=== PATIENT | female | born 2000 | race Caucasian/White ===

== ENCOUNTER 2020-04-21 03:56 | Emergency (ER) | payer MEDICAID, SELFPAY ==
[2020-04-21 04:01] VITALS: BP 110/79; PULSE 101; RESP 16; TEMP 36.7; O2SAT 98
--- NOTE | 2020-04-21 04:15 | US_ITS ---
EXAMINATION: US OBSTETRICAL FOLLOW UP CLINICAL INFORMATION: Decreased movement, 22 weeks. Known renal agenesis. COMPARISON: None TECHNIQUE: Real time transabdominal imaging with color and M-mode Doppler. POSITION: Cephalic PLACENTA: Anterior, grade 2 AMNIOTIC FLUID INDEX: 0 cm MEASUREMENTS: biometric measurements are as follows: Biparietal Diameter: 5.22 cm (21 weeks 6 days) Occipital Frontal Diameter: 6.75 cm (22 weeks 1 day) Head Circumference: 19.42 cm (21 weeks 5 days) Abdominal Circumference: 14.6 cm (20 weeks 0 days) Femur Length: 3.4 cm (20 weeks 5 days) ESTIMATED WEIGHT: The EFW is 354 grams +/- 52 grams (0 lbs 12 oz +/- 2 oz). This is at the less than 2 percentile. HR: 134 bpm Other findings: The kidneys and bladder are not seen. Atypical appearance of the visualized heart. There is a two-vessel cord visualized. Sluggish movements. Maternal cervical length of 3.6 cm. Left ovarian cyst measuring 3.4 x 1.8 x 2.7 cm. US/US OB follow up IMPRESSION: 1. Single intrauterine gestation in cephalic position with anterior placenta. 2. EFW: 354 g, which is less than the 2nd percentile 3. Abnormal NICKIE: 0 cm. 4. Sluggish movements. 2 vessel cord. Limited evaluation of the cardiac structures appear atypical.
--- NOTE | 2020-04-21 04:18 | ED.FEMALEGU ---
HPI - Female Genitourinary General Chief complaint: Anxiety Stated complaint: 22 WEEKS ,WANTS TO BE CHECKED OUT Time Seen by Provider: 04/21/20 04:15 Source: patient Mode of arrival: ambulatory Limitations: no limitations History of Present Illness HPI Narrative: Patient with increased anxiety 22 weeks with renal and heart agenesis was told at 13 weeks to get but patient continued to have . Today she was very anxious with emotions at home and did not feel her baby moving hence came to the ER. Patient denies any vaginal discharge no bleeding no watery discharge , patient has OBG in [place] Related Data Allergies Allergy/AdvReac Type Severity Reaction Status Date / Time No Known Allergies Allergy Unverified 01/06/20 16:50 Review of Systems Review of Systems: Yes all other systems are reviewed and are negative [facility] Past Medical History Medical History Hernia Surgical History History of appendectomy Social History Social History Alcohol intake: never Smoked in Last 30 Days: No Use of substances other than those prescribed or required for medical reasons: No Advance Directives: No Physical Exam Vital Signs: Vital Signs: Last Vital Signs Temp 98.1 F 04/21/20 05:44 Pulse 93 04/21/20 05:44 Resp 18 04/21/20 05:44 BP 93/58 L 04/21/20 05:44 Pulse Ox 98 04/21/20 05:44 Body Mass Index 30.0 Appearance: Alert. Oriented X3. No acute distress. Anxious Eyes: Pupils equal, round and reactive to light. ENT: Pharynx normal. Neck: Normal inspection. Neck supple. CVS: Normal heart rate and rhythm. Pulses normal. Respiratory: No respiratory distress. Breath sounds normal. Abdomen: Soft and nontender. Bowel sounds are present, no mass palpable, no CVA tenderness gravid uterus+ FHS 148 Skin: Skin warm and dry. Normal skin color. Normal skin turgor. Extremities: No lower extremity edema. Neuro: Oriented X 3. No motor deficit. No sensory deficit. MDM - Female Genitourinary MDM Narrative Medical decision making narrative: Patient aware of renal agenesis and IUGR, ultrasound showed heartbeats of 138 very minimal amniotic fluid and renal agenesis. Patient advised to follow with her ObG Discharge Plan Discharge Clinical Impression: Acute anxiety, affected by intrauterine growth retardation (IUGR) Patient Disposition: Home, Self-Care Instructions: Anxiety (ED), at 19 to 22 Weeks (ED) Additional Instructions: Follow-up with your OBG as you aware of congenital anomalies of your fetus Interventions: ED Discharge Assessment Last Done: 04/21/20 05:48
[2020-04-21 05:44] VITALS: BP 93/58; PULSE 93; RESP 18; TEMP 36.7; O2SAT 98
== END 2020-04-21 06:29 | disposition home or self-care (01) ==
PROVIDERS: Emergency Provider Internal Medicine
DX: O36.5920 Maternal care for other known or suspected poor fetal growth, second trimester, not applicable or unspecified (principal); O26.892 Other specified pregnancy related conditions, second trimester; F41.9 Anxiety disorder, unspecified; O35.8XX0 Maternal care for other (suspected) fetal abnormality and damage, not applicable or unspecified; Q60.0 Renal agenesis, unilateral; O41.02X0 Oligohydramnios, second trimester, not applicable or unspecified; Z3A.22 22 weeks gestation of pregnancy
CPT/HCPCS: 76816; 99284

== ENCOUNTER 2020-04-21 11:37 | Emergency (ER) | payer BC, MEDICAID, SELFPAY ==
[2020-04-21 11:44] VITALS: BP 119/86; PULSE 102; RESP 22; TEMP -17.7; TEMP 0; O2SAT 98
--- NOTE | 2020-04-21 12:00 | PC.NURSE ---
Upon pelvic exam Dr. Herrera reports closed cervix, no bleeding noted.
--- NOTE | 2020-04-21 12:02 | ED_ITS ---
HPI - General Adult General Chief complaint: General Medical Stated complaint: ?contractions Time Seen by Provider: 04/21/20 12:02 Source: patient Mode of arrival: ambulatory Limitations: no limitations History of Present Illness HPI narrative: Patient comes emergency room complaining of contractions. Patient states around 10:30, patient woke up in a puddle of fluid, thinks she broke her water, no blood. Patient states that since 10:30, she has been complaining of abdominal cramping, over the last hour the contractions have been very strong, intermittent every 5 minutes, lasting 2-3 minutes. Patient is [place] from [place] where she has had all her care. Patient states she is a G 4 P 0. 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 MD complaint: Contractions Related Data Allergies Allergy/AdvReac Type Severity Reaction Status Date / Time nickel Allergy Anaphylaxis Verified 04/21/20 11:53 ondansetron [From Zofran] Allergy Anaphylaxis Verified 04/21/20 11:52 promethazine [From Phenergan] Allergy Anaphylaxis Verified 04/21/20 11:54 Review of Systems Review of Systems: Constitutional : No Weight loss, No Fever, No Chills, No Night Sweats, No Fatigue, No Malaise ENT/Mouth : No Hearing loss, No Ear Pain, No Nasal Congestion, No Sinus Pain, No Hoarseness, No sore throat, No Rhinorrhea, No Swallowing Difficulty Eyes: No Eye Pain, No Swelling, No Redness, No Foreign Body, No Discharge, No Vision Changes Cardiovascular : No Chest Pain, No SOB, No Dyspnea on Exertion, No Orthopnea, No Edema, No Palpitations Respiratory : No Cough, No Sputum, No Wheezing, No Smoke Exposure, No Dyspnea Gastrointestinal : No Nausea, No Vomiting, No Diarrhea, No Constipation, No abdominal Pain, No Hematochezia, No Melena Genitourinary : Patient complaining feeling a gush of fluid at 10:30 in the morning, no vaginal bleeding, complaining of uterine contractions every 5 minutes, lasting 2-3 minutes Musculoskeletal : No joint pain, No Myalgias, No Joint Swelling Skin : No Skin Lesions, No rash Neuro : No Weakness, No Numbness, No Paresthesias, No Loss of Consciousness, No Dizziness, No Headache Psych : No Anxiety/Panic, No Depression, No SI/HI/AH/VH, No Social Issues, Heme/Lymph: No Bruising, No Bleeding,No Lymphadenopathy Endocrine : No Polyuria, No Polydipsia, No Temperature Intolerance ON LICENSE OF [facility] Past Medical History Medical History Hernia Surgical History History of appendectomy Social History Social History Alcohol intake: never Advance Directives: No Advance Directives Information Provided: No Physical Exam Vital Signs: Vital Signs: Last Vital Signs Temp 0 F L 04/21/20 11:44 Pulse 102 H 04/21/20 11:44 Resp 22 H 04/21/20 11:44 BP 119/86 04/21/20 11:44 Pulse Ox 98 04/21/20 11:44 Body Mass Index 30.0 Appearance: Alert. Oriented X3. Very anxious, seems very uncomfortable, screaming with contractions Eyes: Pupils equal, round and reactive to light. ENT: Pharynx normal. Neck: Normal inspection. Neck supple. No lymph nodes noted. No crepitus CVS: Normal heart rate and rhythm. Pulses normal. Normal S1 and S2 Respiratory: No respiratory distress. Breath sounds normal. No Wheezing. No rales Abdomen: Soft, nontender when patient has no contractions : Copious amount of whitish discharge, cervix is closed Skin: Skin warm and dry. Normal skin color. Normal skin turgor. Extremities: No lower extremity edema. No lower extremity edema. No Lacerations. No Rash Neuro: Oriented X 3. No motor deficit. No sensory deficit. Moving all extermities. No slurred speech. Course Course Course Narrative: I discussed the patient with [facility] OBGYN resident, patient is being accepted to by Dr. Estefanía Brian Labs are still pending, patient has had 2 L of normal saline. Seems that the contractions are slowing down Discharge Plan Discharge Clinical Impression: uterine contractions Patient Disposition: [facility]
--- NOTE | 2020-04-21 12:10 | PC.NURSE ---
2 L normal saline hung w/o per Dr. Herrera v/o. Pt reports contractions are lasting >1 min, approx. 3 minutes apart.
[2020-04-21 12:18] VITALS: BP 104/70; PULSE 95; RESP 22; O2SAT 99
[2020-04-21 12:24] LABS: COVID-19 Test Negative (Negative)
== END 2020-04-21 12:45 | disposition short-term general hospital (02) ==
PROVIDERS: Emergency Provider Emergency Medicine
DX: O60.02 Preterm labor without delivery, second trimester (principal); Z3A.22 22 weeks gestation of pregnancy
CPT/HCPCS: 87635; 99283; 99284

== ENCOUNTER 2021-07-31 14:25 | Emergency (ER) | payer MEDICAID, SELFPAY ==
--- NOTE | ~2021-07-31 | CT_ITS ---
EXAMINATION: CT ABDOMEN AND PELVIS WITHOUT CONTRAST CLINICAL INFORMATION: left flank pain, fever . COMPARISON: No pertinent prior studies are available for comparison. TECHNIQUE: Multidetector volumetric imaging was performed from the superior aspect of the liver through the pubic symphysis without contrast per renal stone protocol. Sagittal and coronal reformatted images were obtained on the technologist workstation. This CT examination was performed using dose optimization techniques as appropriate, variously including the following: *Automated exposure control *Adjustment of mA and/or kV according to patient size (this includes techniques or standardized protocols for targeted exams where dose is matched to indication/reason for exam; i.e. extremities or head) *Use of iterative reconstruction technique DLP: 552 mGy-cm. FINDINGS: LUNG BASES: The visualized lung bases are unremarkable. LIVER, GALLBLADDER, BILIARY TREE: The non-contrast liver is normal in size, shape, and attenuation. No focal hepatic lesion or biliary ductal dilatation is present. The gallbladder is unremarkable with no evidence of radiopaque gallstones, gallbladder wall thickening, or obvious pericholecystic inflammatory changes. PANCREAS: Unremarkable. SPLEEN: Unremarkable. ADRENAL GLANDS: Unremarkable. KIDNEYS AND URETERS: The kidneys are normal in size, shape, and attenuation. No hydronephrosis, hydroureter, or calculi seen. No perinephric stranding. BLADDER: Unremarkable. GASTROINTESTINAL TRACT: The small and large bowel are unremarkable. The partially visualized appendix is unremarkable. ABDOMINAL WALL: No significant hernia is appreciated. LYMPHOVASCULAR STRUCTURES: No lymphadenopathy. The aorta is unremarkable.. PELVIC VISCERA: Unremarkable. OSSEUS STRUCTURES: Unremarkable. CT/CT abdomen pelvis wo con IMPRESSION: No acute intra-abdominal process seen. No renal or ureteric calculi and no obstructive changes noted..
[2021-07-31 15:21] VITALS: BP 130/85; PULSE 87; RESP 18; TEMP 36.9; O2SAT 98; BMI 28.2
--- NOTE | 2021-07-31 15:27 | PC.NURSE ---
patient given zofran after patient states having no allergies and feeling nausea. RN then sees patient has listed allergy to zofran. patient asked specifically if she had an allergy to zofran after admin and reports no. patient instructed to make RN aware immediately if she has any reaction. placed in view of nurses station
[2021-07-31 15:47] LABS: Appearance Urine CLEAR; Color Urine YELLOW; Glucose Urine UA NEG (NEG); Leukocyte Esterase Urine TRACE (NEG); Nitrite Urine NEG (NEG); PH 6.5 (5.0-8.0); UACC Culture Trigger YES; Urine Blood NEG (NEG); Urine Ketones NEG (NEG); Urine Protein NEG (NEG-TRACE)
[2021-07-31 15:47] LABS: IDNOW Serial# 08D9AD1C; Strep A Nucleic Acid Negative (Negative)
[2021-07-31 15:49] LABS: UPreg QC Valid YES; Urine Pregnancy NEGATIVE (NEGATIVE)
[2021-07-31 15:53] LABS: COVID-19 Test Negative (Negative); IDNOW Serial# 16C4AD1C; Influenza A Negative (Negative); Influenza B2 Negative (Negative)
[2021-07-31 16:11] LABS: Bacteria Urine 1+ /LPF; Mucus Urine TRACE /LPF; Squamous Epithelial Cell Urine 2+ /LPF; UACC CULT YES
[2021-07-31] MEDS: Acetaminophen 325 MG TABLET 650 MG PO (16:18)
[2021-07-31 16:29] LABS: MANUAL DIFF FLAG NO
[2021-07-31 16:31] LABS: Basophils Percent Auto 0.2 % (0-2); Eosinophils Absolute Auto 0.1 X10*3/uL (0.0-0.4); Eosinophils Percent Auto 0.6 % (0-4); Hematocrit 39.9 % (37.0-47.0); Hemoglobin 13.1 g/dl (12.0-16.0); Imm Gran Abs Auto 0.02 X10*3/uL (0.00-0.03); Imm Gran Pct Auto 0.2 % (0.0-0.4); Lymphocytes Absolute Auto 2.2 X10*3/uL (1.2-4.9); Lymphocytes Percent Auto 22.6 % (20-40); Mean Corpuscular HGB Conc 32.8 g/dl (31.0-35.0); Mean Corpuscular Hemoglobin 28.5 pg (27.0-33.0); Mean Corpuscular Volume 86.7 fL (80.0-98.0); Mean Platelet Volume 9.8 fL (9.4-12.3); Monocytes Absolute Auto 0.5 X10*3/uL (0.1-1.2); Monocytes Percent Auto 4.7 % (2-11); Neutrophils Absolute Auto 6.8 x10*3/uL (2.0-8.3); Neutrophils Percent Auto 71.7 % (45-73); Platelet Count 265 X10*3/uL (160-400); Red Cell Distribution Width 12.3 % (11.0-16.0); White Blood Count 9.5 X10*3/uL (4.8-10.8)
--- NOTE | 2021-07-31 16:40 | ED_ITS ---
HPI - General Adult General Chief complaint: General Medical Stated complaint: fever/headaches Time Seen by Provider: 07/31/21 15:43 Source: patient Mode of arrival: ambulatory Limitations: no limitations History of Present Illness HPI narrative: 21-year-old female presents with 4 days of headache, dysuria, and polydipsia. Patient states she had a fever this morning at home. She has had hot and cold chills and increased urinary frequency. She is nauseous, and has left low back pain. Denies cough, sore throat, runny nose. Has chronic upper lip swelling for 1 year, has seen Dermatology, dentist, statistical assistant, no clear diagnosis. Patient does have a history of migraines. She is allergic to ketorolac. Patient states since she lost her baby last year, she has had multiple physical complaints. Related Data Previous Rx's Medication Instructions Recorded nitrofurantoin macrocrystal 100 mg 100 mg PO BID 5 Days #10 cap 07/31/21 capsule Allergies Allergy/AdvReac Type Severity Reaction Status Date / Time nickel Allergy Anaphylaxis Verified 07/31/21 18:01 ondansetron [From Zofran] Allergy Anaphylaxis Verified 07/31/21 18:01 promethazine [From Phenergan] Allergy Anaphylaxis Verified 07/31/21 18:01 metoclopramide [From Reglan] AdvReac Unknown Verified 07/31/21 18:01 Review of Systems Constitutional: Constitutional: Denies body ache(s), Reports chills, Reports fatigue, Reports fever(s), Reports headache(s), Denies malaise and Denies weakness Eyes: Eyes: Denies diplopia ENT: Reports Normal hearing present, Denies vertigo, Denies dizziness, Denies otalgia, Reports headache(s), Denies mouth pain, Denies post nasal drip, Denies sinus pain, Denies sinus pressure, Denies sore throat and Denies throat swelling Cardiovascular: Cardiovascular: Denies chest pain, Denies syncope, Denies leg edema, Denies lightheadedness, Denies Loss of Consciousness, Denies palpitations and Denies dyspnea Respiratory: Respiratory: Denies chest congestion, Denies cough and Denies dyspnea Gastrointestinal: Gastrointestinal: Denies abdominal pain, Denies hematoche kumar, Denies constipation, Denies diarrhea, Reports nausea and Denies vomiting Genitourinary: Genitourinary: Denies hematuria, Reports dysuria, Denies pelvic pain and Reports urinary urgency Musculoskeletal: Musculoskeletal: Reports back pain, Denies numbness and Denies tingling Integumentary/Breasts: Comments: chronically swollen upper lip Neurologic: Reports Normal hearing present, Denies Abnormal speech present, Denies confusion, Denies vertigo, Denies dizziness, Denies syncope, Reports headache(s), Denies numbness, Denies Sensory deficit (Neuro), Denies tingling, Denies paresthesias and Denies weakness Psychiatric: Psychiatric: Denies anxiety, Denies confusion and Denies depression Endocrine: Endocrine: Reports fatigue, Reports polydipsia, Reports polyuria and Denies palpitations Allergic/Immunologic: Allergic/Immunologic: Denies throat swelling PMFSH Past Medical History Medical History Hernia Surgical History History of appendectomy Social History Social History Alcohol intake: never Advance Directives: No Advance Directives Information Provided: No Physical Exam ED Vital Signs: Vital Signs - 24 hr 07/31/21 15:21 Temperature 98.4 F Pulse Rate 87 Respiratory Rate 18 Blood Pressure 130/85 Pulse Oximetry 98 BMI result Body Mass Index 28.2 Const General: no acute distress, well developed, alert and awake; No confusion Nutritional Appearance: well nourished Orientation/consciousness: patient oriented x3 and No confusion Limitations: no limitations [facility] Head: Yes normal to inspection, Yes No palpable skull fracture present, Yes normocephalic and Yes atraumatic Ears: hearing grossly normal bilaterally and TM's normal bilaterally General nose exam: Normal external nose present Face and sinus: Yes other (upper left lip swollen, pt states chronic) Mouth: oropharynx abnormals (mildly erythematous) and mucous membranes dry Throat: Yes posterior oropharynx abnormal Eyes Pupils: Equal, round and reactive pupils present EOM: EOMs intact bilaterally and No Nystagmus present Neck Neck: Yes normal visual inspection, Yes full ROM, Yes no lymphadenopathy, Yes no meningeal signs, Yes trachea midline and Yes supple Resp Effort & Inspection: normal respiratory effort and able to speak in complete sentences Auscultation: clear to auscultation bilaterally, no crackles, no rales, no rhonchi and no wheezes Cardio Rate: regular rate Rhythm: regular rhythm Heart sounds: S1 normal heart sound present and S2 normal heart sound present GI Inspection: Yes normal to inspection Palpation (GI): Soft to palpation, Tenderness to palpation present (GI) suprapubicly and no guarding Percussion: Yes normal to percussion Auscultation: normal bowel sounds General: Yes CVA tenderness on the left Back/Spine/Pelvis Back: CVA tenderness Cervical Spine: normal cervical lordosis, cervical ROM normal, No Cervical spine tenderness, No step off deformity and No cervical ROM abnormal Thoracic/Lumbar Spine: No thoracic spinal tenderness and No lumbar spinal tenderness Neuro General: patient oriented x3, no meningeal signs and No confusion Cranial nerves: Yes CN's II-XII intact bilaterally, Yes Facial sensation intact/muscles of mastication intact, Yes Equal, round and reactive pupils present, Yes Bilaterally intact EOM present, Yes Nystagmus not present, Yes Normal facial strength present, Yes Midline tongue present, Yes Normal hearing present, Yes Ability to bilaterally rotate head present, Yes Ability to bilaterally elevate shoulders present and No Nystagmus present Cognition (Neuro): normal cognition Speech: No Abnormal speech present Gait exam (Neuro): Normal gait present Motor exam (neuro): 5/5 motor strength present throughout Sensory Exam: No Sensory deficit (Neuro) Coordination: [id number] test normal Pupils: Normal pupillary reactivity/response: bilateral Extrem General: Yes normal to inspection, Yes full ROM and Yes capillary refill normal Psych Affect: Anxious affect present Course Course Course Narrative: 19-year-old female complains of 4 days of headache, dysuria, increased thirst, fevers, and left low back pain. On exam, patient is neurologically intact, has suprapubic tenderness, and left CVA tenderness. Labs are remarkable for blood glucose of 98, patient has trace leukocyte es terase in her urine, she is not . COVID, flu, strep were all negative. Due to reported fevers at home, dysuria, and left CVA tenderness, will get CT abdomen pelvis to rule out kidney pathology Reevaluation(s) Reevaluation #1: CT/CT abdomen pelvis wo con IMPRESSION: No acute intra-abdominal process seen. No renal or ureteric calculi and no obstructive changes noted.. ? Will treat for UTI, f/u with PCP Medical Decision Making Lab Data Result diagrams: 07/31/21 16:25 07/31/21 16:24 Labs: Lab Results 07/31/21 07/31/21 07/31/21 Range/Units 15:23 15:23 15:23 WBC (4.8-10.8) X10*3/uL RBC (4.20-5.50) X10*6/uL Hgb (12.0-16.0) g/dl Hct (37.0-47.0) % MCV (80.0-98.0) fL MCH (27.0-33.0) pg MCHC (31.0-35.0) g/dl RDW (11.0-16.0) % Plt Count (160-400) X10*3/uL MPV (9.4-12.3) fL Immature Gran % (Auto) (0.0-0.4) % Neut % (Auto) (45-73) % Lymph % (Auto) (20-40) % [place] % (Auto) (2-11) % Eos % (Auto) (0-4) % Baso % (Auto) (0-2) % Lymph # (Auto) (1.2-4.9) X10*3/uL [place] # (Auto) (0.1-1.2) X10*3/uL Eos # (Auto) (0.0-0.4) X10*3/uL Baso # (Auto) (0.0-0.2) X10*3/uL Abs Immat Gran (auto) (0.00-0.03) X10*3/uL Absolute Neuts (auto) (2.0-8.3) x10*3/uL Absolute Nucleated RBC (0.0-0.012) X10*3/uL Nucleated RBC % (auto) (0.0-0.2) /100WBC Sodium (135-145) mmol/L Potassium (3.3-5.1) mmol/L Chloride (96-108) mmol/L Carbon Dioxide (22-29) mmol/L Anion Gap (12-20) BUN (9-16) mg/dL Creatinine (0.5-1.4) mg/dL Estim Creat Clear Calc Estimated GFR Random Glucose (60-115) mg/dL Calcium (8.4-10.2) mg/dL Total Bilirubin (0.0-1.0) mg/dL AST (5-31) U/L ALT (0-31) U/L Alkaline Phosphatase (39-117) U/L Total Protein (6.5-8.0) g/dL Albumin (3.5-5.0) g/dL Urine Color Urine Appearance Urine pH (5.0-8.0) Ur Specific Poth (1.005-1.025) Urine Protein (NEG-TRACE) MG/DL Urine Glucose (UA) (NEG) MG/DL Urine Ketones (NEG) MG/DL Urine Blood (NEG) Urine Nitrite (NEG) Ur Leukocyte Esterase (NEG) Urine RBC (0) /HPF Urine WBC (0-4) /HPF Ur Squamous Epith Cells /LPF Urine Bacteria /LPF Urine Mucus /LPF Urine Test (NEGATIVE) COVID-19 (JAYASHREE) Negative (Negative) COVID-19 Clin Com See Note Influenza Type A (ESTRELLITA) Negative (Negative) Influenza Type B (ESTRELLITA) Negative (Negative) Influenza A & B Note See Note S. pyogenes GrpA ESTRELLITA Negative (Negative) 07/31/21 07/31/21 07/31/21 Range/Units 15:24 15:25 16:24 WBC (4.8-10.8) X10*3/uL RBC (4.20-5.50) X10*6/uL Hgb (12.0-16.0) g/dl Hct (37.0-47.0) % MCV (80.0-98.0) fL MCH (27.0-33.0) pg MCHC (31.0-35.0) g/dl RDW (11.0-16.0) % Plt Count (160-400) X10*3/uL MPV (9.4-12.3) fL Immature Gran % (Auto) (0.0-0.4) % Neut % (Auto) (45-73) % Lymph % (Auto) (20-40) % [place] % (Auto) (2-11) % Eos % (Auto) (0-4) % Baso % (Auto) (0-2) % Lymph # (Auto) (1.2-4.9) X10*3/uL [place] # (Auto) (0.1-1.2) X10*3/uL Eos # (Auto) (0.0-0.4) X10*3/uL Baso # (Auto) (0.0-0.2) X10*3/uL Abs Immat Gran (auto) (0.00-0.03) X10*3/uL Absolute Neuts (auto) (2.0-8.3) x10*3/uL Absolute Nucleated RBC (0.0-0.012) X10*3/uL Nucleated RBC % (auto) (0.0-0.2) /100WBC Sodium 138 (135-145) mmol/L Potassium 4.2 (3.3-5.1) mmol/L Chloride 106 (96-108) mmol/L Carbon Dioxide 25 (22-29) mmol/L Anion Gap 11 L (12-20) BUN 7 L (9-16) mg/dL Creatinine 0.66 (0.5-1.4) mg/dL Estim Creat Clear Calc 132.2 Estimated GFR > 60 Random Glucose 93 (60-115) mg/dL Calcium 9.4 (8.4-10.2) mg/dL Total Bilirubin 0.4 (0.0-1.0) mg/dL AST 15 (5-31) U/L ALT 15 (0-31) U/L Alkaline Phosphatase 63 (39-117) U/L Total Protein 7.2 (6.5-8.0) g/dL Albumin 4.3 (3.5-5.0) g/dL Urine Color YELLOW Urine Appearance CLEAR Urine pH 6.5 (5.0-8.0) Ur Specific Poth 1.010 (1.005-1.025) Urine Protein NEG (NEG-TRACE) MG/DL Urine Glucose (UA) NEG (NEG) MG/DL Urine Ketones NEG (NEG) MG/DL Urine Blood NEG (NEG) Urine Nitrite NEG (NEG) Ur Leukocyte Esterase TRACE H (NEG) Urine RBC 1-4 (0) /HPF Urine WBC 1-4 (0-4) /HPF Ur Squamous Epith Cells 2+ /LPF Urine Bacteria 1+ /LPF Urine Mucus TRACE /LPF Urine Test NEGATIVE (NEGATIVE) COVID-19 (JAYASHREE) (Negative) COVID-19 Clin Com Influenza Type A (ESTRELLITA) (Negative) Influenza Type B (ESTRELLITA) (Negative) Influenza A & B Note S. pyogenes GrpA ESTRELLITA (Negative) 07/31/21 Range/Units 16:25 WBC 9.5 (4.8-10.8) X10*3/uL RBC 4.60 (4.20-5.50) X10*6/uL Hgb 13.1 (12.0-16.0) g/dl Hct 39.9 (37.0-47.0) % MCV 86.7 (80.0-98.0) fL MCH 28.5 (27.0-33.0) pg MCHC 32.8 (31.0-35.0) g/dl RDW 12.3 (11.0-16.0) % Plt Count 265 (160-400) X10*3/uL MPV 9.8 (9.4-12.3) fL Immature Gran % (Auto) 0.2 (0.0-0.4) % Neut % (Auto) 71.7 (45-73) % Lymph % (Auto) 22.6 (20-40) % [place] % (Auto) 4.7 (2-11) % Eos % (Auto) 0.6 (0-4) % Baso % (Auto) 0.2 (0-2) % Lymph # (Auto) 2.2 (1.2-4.9) X10*3/uL [place] # (Auto) 0.5 (0.1-1.2) X10*3/uL Eos # (Auto) 0.1 (0.0-0.4) X10*3/uL Baso # (Auto) 0.0 (0.0-0.2) X10*3/uL Abs Immat Gran (auto) 0.02 (0.00-0.03) X10*3/uL Absolute Neuts (auto) 6.8 (2.0-8.3) x10*3/uL Absolute Nucleated RBC 0.000 (0.0-0.012) X10*3/uL Nucleated RBC % (auto) 0.0 (0.0-0.2) /100WBC Sodium (135-145) mmol/L Potassium (3.3-5.1) mmol/L Chloride (96-108) mmol/L Carbon Dioxide (22-29) mmol/L Anion Gap (12-20) BUN (9-16) mg/dL Creatinine (0.5-1.4) mg/dL Estim Creat Clear Calc Estimated GFR Random Glucose (60-115) mg/dL Calcium (8.4-10.2) mg/dL Total Bilirubin (0.0-1.0) mg/dL AST (5-31) U/L ALT (0-31) U/L Alkaline Phosphatase (39-117) U/L Total Protein (6.5-8.0) g/dL Albumin (3.5-5.0) g/dL Urine Color Urine Appearance Urine pH (5.0-8.0) Ur Specific Poth (1.005-1.025) Urine Protein (NEG-TRACE) MG/DL Urine Glucose (UA) (NEG) MG/DL Urine Ketones (NEG) MG/DL Urine Blood (NEG) Urine Nitrite (NEG) Ur Leukocyte Esterase (NEG) Urine RBC (0) /HPF Urine WBC (0-4) /HPF Ur Squamous Epith Cells /LPF Urine Bacteria /LPF Urine Mucus /LPF Urine Test (NEGATIVE) COVID-19 (JAYASHREE) (Negative) COVID-19 Clin Com Influenza Type A (ESTRELLITA) (Negative) Influenza Type B (ESTRELLITA) (Negative) Influenza A & B Note S. pyogenes GrpA ESTRELLITA (Negative) Discharge Plan Discharge Clinical Impression: UTI (urinary tract infection), Headache Patient Disposition: Home, Self-Care Instructions: Urinary Tract Infection in Women (ED) Additional Instructions: I have sent antibiotics to [facility] in [place]. The CT scan of your kidney shows no infection or stone. Your COVID, flu, and strep were all negative. Your blood glucose was in the normal range. Please call your primary care provider for follow-up appointment from today's emergency room visit. You may also wish to discuss with your primary care provider the medicines that will stop migraine in the beginning. Some of these medicines are called sumatriptan or Fioricet. Please return to the emergency room if you have worsening fevers or back pain For please return to emergency room for any new or concerning symptoms Prescriptions: New nitrofurantoin macrocrystal 100 mg capsule 100 mg PO BID 5 Days Qty: 10 0RF Rx Instructions: must administer with a meal/food Referrals: [facility] [Provider Group]
[2021-07-31 16:44] LABS: Alanine Aminotransferase 15 U/L (0-31); Albumin Level 4.3 g/dL (3.5-5.0); Alkaline Phosphatase 63 U/L (39-117); Anion Gap 11 (12-20); Aspartate Amino Transferase 15 U/L (5-31); Bilirubin Total 0.4 mg/dL (0.0-1.0); Blood Urea Nitrogen 7 mg/dL (9-16); Calcium 9.4 mg/dL (8.4-10.2); Carbon Dioxide 25 mmol/L (22-29); Chloride 106 mmol/L (96-108); Creatinine Clr Calc Pharmacy 132.2; Estimated Glomerular Filt Rate > 60; Glucose Random 93 mg/dL (60-115); Potassium 4.2 mmol/L (3.3-5.1); Sodium 138 mmol/L (135-145); Total Protein 7.2 g/dL (6.5-8.0)
== END 2021-07-31 18:16 | disposition home or self-care (01) ==
PROVIDERS: Physician Assistant; Emergency Provider Emergency Medicine
DX: N39.0 Urinary tract infection, site not specified (principal); R51.9 Headache, unspecified; Z20.822 Contact with and (suspected) exposure to COVID-19
CPT/HCPCS: 36415; 74176; 80053; 81001; 81025; 85025; 87086; 87502; 87635; 87651; 99284

== ENCOUNTER 2022-11-09 03:45 | Emergency (ER) | payer BC, MEDICAID, SELFPAY ==
[2022-11-09 04:12] VITALS: BP 114/80; PULSE 107; RESP 16; TEMP 36.7; O2SAT 98; BMI 35.2
--- NOTE | 2022-11-09 04:12 | ED_ITS ---
HPI - Psych General Chief Complaint: Anxiety Stated Complaint: crisis Time Seen by Provider: 11/09/22 04:10 Source: patient Mode of arrival: ambulatory Limitations: no limitations History of Present Illness HPI Narrative: patient with no known psych history 8 months came from [place] for baby shower had verbal altercation with her partner got upset ambulance was called for psych evaluation patient denied any SI or previous nervous breakdown Related Data Previous Rx's Medication Instructions Recorded nitrofurantoin macrocrystal 100 mg 100 mg PO BID 5 days #10 caps 07/31/21 capsule Allergies Allergy/AdvReac Type Severity Reaction Status Date / Time nickel Allergy Anaphylaxis Verified 07/31/21 18:01 ondansetron [From Zofran] Allergy Anaphylaxis Verified 07/31/21 18:01 promethazine [From Phenergan] Allergy Anaphylaxis Verified 07/31/21 18:01 metoclopramide [From Reglan] AdvReac Unknown Verified 07/31/21 18:01 Review of Systems Review of Systems: Yes all other systems are reviewed and are negative [facility] Past Medical History Medical History Hernia Surgical History History of appendectomy Social History Social History Alcohol intake: never Advance Directives: No Advance Directives Information Provided: Yes Physical Exam Vital Signs: Vital Signs: Last Vital Signs Temp 98.1 F 11/09/22 04:12 Pulse 107 H 11/09/22 04:12 Resp 16 11/09/22 04:12 BP 114/80 11/09/22 04:12 Pulse Ox 98 11/09/22 04:12 O2 Del Method Room Air 11/09/22 04:12 BMI result Body Mass Index 35.2 Appearance: Alert. Oriented X3. No acute distress. Eyes: PERRLA, No Nystagmus ENT: Pharynx normal. Oral Mucosa moist Neck: Normal inspection. Neck supple. CVS: Normal heart rate and rhythm. Pulses normal. Respiratory: No respiratory distress. Equal air entry bilateral, no wheezing/rales/rhonchi Abdomen: Soft and nontender. Bowel sounds are present, no mass palpable, no CVA tenderness Skin: Skin warm and dry. Normal skin color. Normal skin turgor. Extremities: No lower extremity edema. No calf tenderness psych: stable mood denies any SI or HI no hallucination or delusion Neuro: Oriented X 3. No motor deficit. No sensory deficit.No cerebellar signs , cranial nerves II-XII intact Medical Decision Making Medical Decision Making MDM Narrative: patient with emotional breakdown, over whelmed with new family's feels safe to go home at this time. Discharge Plan Discharge Clinical Impression: Anxiety, Chronic post-traumatic stress disorder, MDD (major depressive disorder) Patient Disposition: Home, Self-Care Instructions: Post Traumatic Stress Disorder (ED), Anxiety (ED) Additional Instructions: follow-up with PCP / psychiatrist for further management Prescriptions: No Action nitrofurantoin macrocrystal 100 mg capsule 100 mg PO BID 5 Days Qty: 10 0RF Rx Instructions: must administer with a meal/food Interventions: ED Discharge Assessment Last Done: 11/09/22 04:14 Discharge Date/Time: 11/09/22 04:22
== END 2022-11-09 04:22 | disposition home or self-care (01) ==
PROVIDERS: Emergency Provider Internal Medicine
DX: O99.343 Other mental disorders complicating pregnancy, third trimester (principal); F43.12 Post-traumatic stress disorder, chronic; F32.9 Major depressive disorder, single episode, unspecified
CPT/HCPCS: 99282